=== PATIENT | female | born 1975 | race Caucasian/White ===

== ENCOUNTER 2016-12-05 01:41 | Observation (INO) | payer BC ==
[2016-12-05] MEDS ORDERED: Pepcid 20 MG VIAL IV ONE ×2 (01:47→02:08)
[2016-12-05] MEDS ORDERED: Sodium Chloride 0.9% 1000 ML 1,000 ML IV STA (01:47)
[2016-12-05] MEDS ORDERED: BABY ASPIRIN 81 MG CHEW PO ONE (01:53)
[2016-12-05] MEDS ORDERED: BENADRYL 50 MG/ML IV ONE (01:54)
[2016-12-05] MEDS ORDERED: Hydromorphone 1 mg/ml Ampule IV ONE (01:54)
--- NOTE | 2016-12-05 02:02 | ERPHSYRPT ---
- History of Present Illness Time Seen by Provider: 12/05/16 01:45 Historian: patient Patient Subjective Stated Complaint: PT STATES AT APPROXIMATELY 1145PM SHE WOKE FROM SLEEP WITH SEVERE PAIN IN THE MIDDLE OF HER CHEST THAT RADIATED UNDER HER RIBS AND AROUND TO HER BACK. "IT FEELS LIKE THERE IS A ROPE TIED AROUND ME." PT REPORTS NAUSEA AND DIARRHEA THIS EVENING WELL. Triage Nursing Assessment: PT IS AOX3, PUPILS PERRL, AMBULATORY TO COT WITHOUT ANY DIFFICULTIES, SKIN IS PWD, RESPS ARE EASY AND NON LABORED,REPORTS CHEST PAIN AND OVERALL DISCOMFORT TO CENTER OF CHEST. RADIAL PULSES STRONG AND EQUAL. Physician History: CC: chest pain Hx: 41 y/o patient of Dr Mora. She awoke around [place] with sharp central chest pressure radiating around to her back from both sides. She has no personal hx of heart disease but does have fam hx. LMP 3 weeks ago. Not short of breath. No cough. Pain some better now. Took prevacid at home. She has hx of prior indigestion. Pain was severe now moderate. No abd pain. Some recent diarrhea and chills. No N/V. Timing/Duration: today Quality: pressure, sharpness Location: central Chest Pain Radiation: back Severity of Pain-Max: severe Severity of Pain-Current: mild Aspirin Treatment Today: 81 mg x 2, provided by ED Allergies/Adverse Reactions: No Known Drug Allergies Allergy (Verified 12/05/16 01:57) Home Medications: No Reportable Medications [No Reported Medications] 12/05/16 [History] Hx Tetanus, Diphtheria Vaccination/Date Given: No Hx Influenza Vaccination/Date Given: No Hx Pneumococcal Vaccination/Date Given: No Immunizations Up to Date: Yes - Review of Systems Constitutional: Chills, No Fever Eyes: No Symptoms Ears, Nose, & Throat: No Symptoms Respiratory: No Cough, No Dyspnea Cardiac: Chest Pain, No Syncope Abdominal/Gastrointestinal: Diarrhea, No Abdominal Pain, No Nausea, No Vomiting Genitourinary Symptoms: No Dysuria Musculoskeletal: Back Pain Skin: No Rash Neurological: No Focal Weakness, No Headache, No Parasthesia All Other Systems: Reviewed and Negative - Past Medical History Pertinent Past Medical History: No - Past Surgical History Past Surgical History: Yes Female Surgical History: Section, Other Other Surgical History: BREAST REDUCTION, RSO - Social History Smoking Status: Never smoker Drug Use: none Patient Lives Alone: No - Female History Hx Last Menstrual Period: 11/25/16 - Nursing Vital Signs Temperature: 99.6 F Pulse Rate: 100 Respiratory Rate: 20 Pain Intensity: 3 - Physical Exam General Appearance: alert Eye Exam: PERRL/EOMI Ears, Nose, Throat Exam: normal ENT inspection, moist mucous membranes Neck Exam: normal inspection, non-tender, supple Respiratory Exam: normal breath sounds, lungs clear Cardiovascular Exam: regular rate/rhythm, No murmur Gastrointestinal/Abdomen Exam: soft, tenderness (RUQ somewhat with mild winston' s sign) Back Exam: normal inspection, normal range of motion Extremity Exam: normal inspection, normal range of motion Neurologic Exam: alert, oriented x 3, cooperative, sensation nml, No motor deficits Skin Exam: warm, dry, No rash SpO2 Interpretation: normal SpO2: 99 - Course Nursing assessment & vital signs reviewed: Yes EKG Interpreted by Me: RATE (98), Sinus Rhythm, NORMAL AXIS, NORMAL INTERVALS ( QTc 435), NORMAL QRS, NORMAL ST-T - Radiology Exams cxr-1 X-ray Interpretation: Reviewed by me (rotated, can not rule out widened mediastinum) cxr-2 X-ray Interpretation: Reviewed by me (negative, unchanged from 07-18) Ordered Tests: Active Orders 24 hr Category Date Time Status Costume Rental Clerk STAT Care 12/05/16 01:53 Active Clean Catch Urine Specimen STAT Care 12/05/16 01:47 Active EKG-ER Only STAT Care 12/05/16 01:47 Active IV Insertion STAT Care 12/05/16 01:47 Active NPO (ED) STAT Care 12/05/16 01:47 Active Pulse Oximetry (ED) STAT Care 12/05/16 01:53 Active CHEST 1 VIEW (PORTABLE) Stat Exams 12/05/16 01:53 Taken CHEST 2 VIEWS (PA AND LAT) Stat Exams 12/05/16 02:56 Taken CBC W DIFF Stat Lab 12/05/16 01:55 Completed CMP Stat Lab 12/05/16 01:55 Completed HCG QUALITATIVE,SERUM Stat Lab 12/05/16 01:55 Completed LIPASE Stat Lab 12/05/16 01:55 Completed Lactic Acid Urgent Lab 12/05/16 01:56 Completed TROPONIN Q3H Lab 12/05/16 01:55 Completed TROPONIN Q3H Lab 12/05/16 05:00 Ordered TROPONIN Q3H Lab 12/05/16 08:00 Ordered TROPONIN Q3H Lab 12/05/16 11:00 Ordered TROPONIN Q3H Lab 12/05/16 14:00 Ordered UA W/ MICROSCOPIC Stat Lab 12/05/16 02:10 Completed Medication Summary Discontinued Medications Generic Name Dose Route Start Last Admin Trade Name Homeroq PRN Reason Stop Dose Admin Aspirin 162 mg 12/05/16 01:53 Baby Aspirin 81 Mg Chew PO 12/05/16 01:54 STAT ONE Aspirin Confirm 12/05/16 02:08 Baby Aspirin 81 Mg Chew Administered 12/05/16 02:09 Dose 162 mg .ROUTE .STK-MED ONE Diphenhydramine HCl 25 mg 12/05/16 01:54 12/05/16 02:19 Benadryl 50 Mg/Ml IV 12/05/16 01:55 25 mg STAT ONE Administration Diphenhydramine HCl Confirm 12/05/16 02:08 Benadryl 50 Mg/Ml Administered 12/05/16 02:09 Dose 50 mg .ROUTE .STK-MED ONE Famotidine 20 mg 12/05/16 01:47 12/05/16 02:19 Pepcid 20 Mg Vial IV 12/05/16 01:48 20 mg STAT ONE Administration Famotidine Confirm 12/05/16 02:08 Pepcid 20 Mg Vial Administered 12/05/16 02:09 Dose 20 mg IV .STK-MED ONE Hydromorphone HCl 1 mg 12/05/16 01:54 12/05/16 02:20 Hydromorphone 1 Mg/Ml Ampule IV 12/05/16 01:55 1 mg STAT ONE Administration Hydromorphone HCl Confirm 12/05/16 02:09 Hydromorphone 1 Mg/Ml Ampule Administered 12/05/16 02:10 Dose 1 mg .ROUTE .STK-MED ONE Sodium Chloride 1,000 mls @ 999 mls/hr 12/05/16 01:47 12/05/16 02:19 Sodium Chloride 0.9% 1000 Ml IV 12/05/16 02:47 999 mls/hr .Q1H1M STA Administration Sodium Chloride Confirm 12/05/16 02:09 Sodium Chloride 0.9% 1000 Ml Administered 12/05/16 02:10 Dose 1,000 mls @ ud .ROUTE .STK-MED ONE Ondansetron HCl 4 mg 12/05/16 02:35 Zofran 4 Mg/2 Ml Vial IV 12/05/16 02:36 STAT ONE Ondansetron HCl Confirm 12/05/16 02:36 Zofran 4 Mg/2 Ml Vial Administered 12/05/16 02:37 Dose 4 mg .ROUTE .STK-MED ONE Lab/Rad Data: Laboratory Result Diagrams 12/05/16 01:55 12/05/16 01:55 Laboratory Results 12/05/16 12/05/16 12/05/16 Range/Units 02:10 01:56 01:55 WBC (4.0-10.5) K/mm3 RBC (4.1-5.4) M/mm3 Hgb (12.0-16.0) gm/dl Hct (35-47) % MCV (78-100) fl MCH (26-32) pg MCHC (32-36) g/dl RDW (11.5-14.0) % Plt Count (150-450) K/mm3 MPV (6-9.5) fl Gran % (36.0-66.0) % Lymphocytes % (24.0-44.0) % Monocytes % (0.0-12.0) % Eosinophils % (0.00-5.0) % Basophils % (0.0-0.4) % Basophils # (0-0.4) Sodium (136-145) mEq/L Potassium (3.5-5.1) mEq/L Chloride (98-107) mEq/L Carbon Dioxide (21-32) mEq/L Anion Gap (5-15) MEQ/L BUN (9-20) mg/dL Creatinine (0.55-1.30) mg/dl Estimated GFR ML/MIN Glucose (70-110) MG/DL Lactic Acid 1.2 (0.4-2.0) Calcium (8.5-10.1) mg/dL Total Bilirubin (0.2-1.0) mg/dL AST (15-37) U/L ALT (12-78) U/L Alkaline Phosphatase (46-116) U/L Troponin I < 0.017 (0.000-0.056) ng/ml Serum Total Protein (6.4-8.2) gm/dL Albumin (3.4-5.0) g/dL Lipase (73-393) U/L Serum , Qual (Negative) Ur Collection Type CLEAN CATCH Urine Color YELLOW (YELLOW) Urine Appearance SLIGHTLY CLOUDY (CLEAR) Urine pH 6.5 (5-6) Ur Specific Goff 1.025 (1.005-1.025) Urine Protein NEGATIVE (Negative) Urine Glucose (UA) NEGATIVE (NEGATIVE) mg/dL Urine Ketones NEGATIVE (NEGATIVE) Urine Nitrite NEGATIVE (NEGATIVE) Urine Bilirubin NEGATIVE (NEGATIVE) Urine Urobilinogen 0.2 (0-1) mg/dL Urine WBC (Auto) SMALL (NEGATIVE) Urine RBC (Auto) TRACE NON-HEM (0-5) Roger/ul Urine Microscopic RBC 0-2 (0-2) /HPF Urine Microscopic WBC 2-5 (0-5) /HPF Ur Epithelial Cells FEW (FEW) /HPF Urine Bacteria FEW (NEGATIVE) /HPF Specimen Received 12/05/16:0210 12/05/16 12/05/16 12/05/16 Range/Units 01:55 01:55 01:55 WBC 9.5 (4.0-10.5) K/mm3 RBC 4.72 (4.1-5.4) M/mm3 Hgb 12.4 (12.0-16.0) gm/dl Hct 37.2 (35-47) % MCV 78.8 (78-100) fl MCH 26.3 (26-32) pg MCHC 33.3 (32-36) g/dl RDW 15.0 H (11.5-14.0) % Plt Count 209 (150-450) K/mm3 MPV 10.0 H (6-9.5) fl Gran % 82.5 H (36.0-66.0) % Lymphocytes % 6.9 L (24.0-44.0) % Monocytes % 8.9 (0.0-12.0) % Eosinophils % 1.5 (0.00-5.0) % Basophils % 0.2 (0.0-0.4) % Basophils # 0.02 (0-0.4) Sodium 141 (136-145) mEq/L Potassium 4.1 (3.5-5.1) mEq/L Chloride 105 (98-107) mEq/L Carbon Dioxide 24.5 (21-32) mEq/L Anion Gap 15.8 H (5-15) MEQ/L BUN 17 (9-20) mg/dL Creatinine 0.66 (0.55-1.30) mg/dl Estimated GFR > 60 ML/MIN Glucose 121 H (70-110) MG/DL Lactic Acid (0.4-2.0) Calcium 9.2 (8.5-10.1) mg/dL Total Bilirubin 0.7 (0.2-1.0) mg/dL AST 128 H (15-37) U/L ALT 75 (12-78) U/L Alkaline Phosphatase 79 (46-116) U/L Troponin I (0.000-0.056) ng/ml Serum Total Protein 7.4 (6.4-8.2) gm/dL Albumin 4.2 (3.4-5.0) g/dL Lipase 120 (73-393) U/L Serum , Qual NEGATIVE (Negative) Ur Collection Type Urine Color (YELLOW) Urine Appearance (CLEAR) Urine pH (5-6) Ur Specific Goff (1.005-1.025) Urine Protein (Negative) Urine Glucose (UA) (NEGATIVE) mg/dL Urine Ketones (NEGATIVE) Urine Nitrite (NEGATIVE) Urine Bilirubin (NEGATIVE) Urine Urobilinogen (0-1) mg/dL Urine WBC (Auto) (NEGATIVE) Urine RBC (Auto) (0-5) Roger/ul Urine Microscopic RBC (0-2) /HPF Urine Microscopic WBC (0-5) /HPF Ur Epithelial Cells (FEW) /HPF Urine Bacteria (NEGATIVE) /HPF Specimen Received - Progress Progress Note: 12/05/16 03:15 Pain gone. Maybe some tenderness in RUQ on palpation. She has had quite a lot of nausea. She is very worried about her heart. Nothing to suggest TAD as she has normal pulses, normal mediastinum. Likely will jewel bearing turner to bililary. Called Dr Bang (oc) for tele obs for serial troponin and possibly GB sonogram. Counseled pt/family regarding: lab results, diagnosis, need for follow-up, rad results - Departure Time of Disposition: 03:16 Departure Disposition: Observation (Tele) Clinical Impression: Acute chest pain Condition: Fair Critical Care Time: No Referrals: JOSHUA MORA [Primary Care Provider] -
[2016-12-05 02:03] LABS: BASOPHIL % 0.2 % (0.0-0.4); Eosinophil % 1.5 % (0.00-5.0); Granulocytes % 82.5 % (36.0-66.0); Lymphocytes % 6.9 % (24.0-44.0); Mean Cell Volume 78.8 fl (78-100); Mean Corpuscular Hemoglobin 26.3 pg (26-32); Monocytes % 8.9 % (0.0-12.0); Platelet Count 209 K/mm3 (150-450); Red Blood Count 4.72 M/mm3 (4.1-5.4); White Blood Count 9.5 K/mm3 (4.0-10.5)
[2016-12-05] MEDS ORDERED: BABY ASPIRIN 81 MG CHEW ONE (02:08)
[2016-12-05] MEDS ORDERED: BENADRYL 50 MG/ML ONE (02:08)
[2016-12-05] MEDS ORDERED: Sodium Chloride 0.9% 1000 ML 2,000 ML ONE (02:09)
[2016-12-05] MEDS ORDERED: Hydromorphone 1 mg/ml Ampule ONE (02:09)
[2016-12-05 02:25] LABS: ALBUMIN 4.2 g/dL (3.4-5.0); ALKALINE PHOSPHATASE 79 U/L (46-116); ANION GAP 15.8 MEQ/L (5-15); BILIRUBIN,TOTAL 0.7 mg/dL (0.2-1.0); BLOOD UREA NITROGEN 17 mg/dL (9-20); CHLORIDE 105 mEq/L (98-107); Carbon Dioxide 24.5 mEq/L (21-32); Glucose 121 MG/DL (70-110); LIPASE 120 U/L (73-393); Potassium 4.1 mEq/L (3.5-5.1); SGOT/AST 128 U/L (15-37); SGPT/ALT 75 U/L (12-78); SODIUM 141 mEq/L (136-145); Total Protein 7.4 gm/dL (6.4-8.2)
[2016-12-05 02:30] LABS: Bacteria FEW /HPF (NEGATIVE); COMPLETE URINE MICROSCOPIC? YES; Collection Type CLEAN CATCH; Epithelial Cells FEW /HPF (FEW); Ph 6.5 (5-6)
[2016-12-05] MEDS ORDERED: Zofran 4 MG/2 ML VIAL IV ONE (02:35)
[2016-12-05] MEDS ORDERED: Zofran 4 MG/2 ML VIAL ONE (02:36)
[2016-12-05] MEDS ORDERED: Zofran 4 MG/2 ML VIAL IV PRN (03:53)
[2016-12-05] MEDS ORDERED: Sodium Chloride 0.9% 1000 ML 1,000 ML IV SCH (03:53)
[2016-12-05] MEDS ORDERED: DILAUDID 2 MG INJECTION IV PRN (03:53)
--- NOTE | 2016-12-05 08:59 | XRAY ---
Indication: Chest pain. Comparison: July 28, 2016. Portable chest rotated translating the heart and mediastinal structures. Lungs are clear today. Heart is not enlarged. Bony thorax intact. Impression: Nonacute chest.
--- NOTE | 2016-12-05 08:59 | XRAY ---
Indication: Chest pain. Comparison: Taken earlier in the day. PA/lateral chest remains clear. Heart and mediastinal structures stable and within normal limits. No new/acute findings. Impression: Stable nonacute chest.
[2016-12-05] MEDS ORDERED: Pepcid 20 MG VIAL IV SCH (10:00)
--- NOTE | 2016-12-05 11:36 | PCM.SSS ---
History of Present Illness - Chief Complaint Chief Complaint: chest pain History of Present Illness: is a 41 year old female who ate a cheeseburger last night and afterward had some loose stool followed by 7/10 waxing and waning epigastric pain, sharp, which radiated under both breasts to the back as pressure. Improved before going to ER, and resolved after being given meds in ER. Nausea , no vomiting. Denies palpitations or SOB. Troponins neg x 3 here. GB u/s done. Pt with some stomach upset after the u/s , notes she had abd tenderness with the scan. GM and aunt with hx cholecystectomy. - Review of Systems Abdominal/Gastrointestinal: Abdominal Pain, Nausea, Diarrhea All Other Systems: Reviewed and Negative Medications & Allergies Home Medications: Home Medication List No Reportable Medications [No Reported Medications] 12/05/16 [History Confirmed 12/05/16] Allergies/Adverse Reactions: Allergies Allergy/AdvReac Type Severity Reaction Status Date / Time No Known Drug Allergies Allergy Verified 12/05/16 01:57 - Past Medical History Past Medical History: No Neurological History: No Pertinent History ENT History: No Pertinent History Cardiac History: No Pertinent History Respiratory History: No Pertinent History Endocrine Medical History: No Pertinent History Musculoskelatal History: No Pertinent History GI Medical History: GERD History: No Pertinent History Pyscho-Social History: No Pertinent History Reproductive Disorders: No Pertinent History Comment: HTN hx during - Female History Hx Last Menstrual Period: 11/25/16 Are you now?: No - Past Surgical History Past Surgical History: Yes Neuro Surgical History: No Pertinent History Cardiac History: No Pertinent History Respiratory Surgery: No Pertinent History GI Surgical History: No Pertinent History Genitourinary Surgical Hx: No Pertinent History Female Surgical History: Section, Tubal Ligation, Other Other Surgical History: BREAST REDUCTION, RSO - Social History Smoking Status: Never smoker Exposure to second hand smoke: No Alcohol: None Drug Use: none - Physical Exam Vital Signs: Vital Signs - 24 hr Temp Pulse Pulse Resp BP Pulse Ox 12/05/16 07:23 98.6 F 90 20 130/70 97 12/05/16 04:28 98.4 F 83 21 129/69 94 L 12/05/16 03:23 92 H 18 140/89 97 12/05/16 03:17 99.6 F 100 H 20 99 12/05/16 01:58 99 12/05/16 01:55 100 H 12/05/16 01:42 99.6 F 100 H 20 141/98 99 General Appearance: no apparent distress Neurologic Exam: alert, oriented x 3, cooperative Eye Exam: eyes nml inspection Neck Exam: normal inspection, non-tender, No lymphadenopathy Respiratory Exam: normal breath sounds, lungs clear, No crackles/rales, No rhonchi, No wheezing Cardiovascular Exam: regular rate/rhythm, normal heart sounds, No murmur Gastrointestinal/Abdomen Exam: soft, normal bowel sounds, No tenderness, No distention, No mass, No guarding, No rebound Back Exam: normal inspection, No CVA tenderness Extremity Exam: No pedal edema, No swelling Skin Exam: normal color, warm, dry Results - Labs Lab/Micro Results: Lab Results-Last 24 Hours 12/05/16 12/05/16 Range/Units 05:20 08:03 Troponin I < 0.017 < 0.017 (0.000-0.056) ng/ml Assessment/Plan (1) Epigastric pain Current Visit: Yes Status: Acute Assessment & Plan: Highly suspicious for gallbladder disease. U/S pending. If negative would do HIDA scan outpatient; discussed with pt. Will try bland diet - discussed at length with pt. If she tolerates po can go home. Code(s): R10.13 - EPIGASTRIC PAIN (2) Chest pain Current Visit: Yes Status: Acute Qualifiers: Chest pain type: other chest pain Qualified Code(s): R07.89 - Other chest pain; R07.8 - Other chest pain Assessment & Plan: IA ruled out. Code(s): R07.9 - CHEST PAIN, UNSPECIFIED (3) Nausea Current Visit: Yes Status: Acute Assessment & Plan: I think may improve after she eats. Code(s): R11.0 - NAUSEA (4) Elevated liver enzymes Current Visit: Yes Status: Acute Assessment & Plan: check OP lab next week. Code(s): R74.8 - ABNORMAL LEVELS OF OTHER SERUM ENZYMES Hospital Summary - Hospital Course Hospital Course: Pt admitetd with epigastric pain, IA ruled out with troponins x 3. GB U/s with what sounds like + Coe's sign per pt. Await report. Pain is resolved, still some nausea present. She will try eating bland lunch, if tolerates po can d/c home. - Vitals & Intake/Output Vital Signs: Vital Signs Temperature 98.6 F 12/05/16 07:23 Pulse Rate 90 12/05/16 07:23 Respiratory Rate 20 12/05/16 07:23 Blood Pressure 130/70 12/05/16 07:23 O2 Sat by Pulse Oximetry 97 12/05/16 07:23 Intake & Output: Intake & Output 12/02/16 12/03/16 12/04/16 12/05/16 11:59 11:59 11:59 11:59 Intake Total 0 Balance 0 Weight 89.448 kg - Lab Result Diagrams: 12/05/16 01:55 12/05/16 01:55 Lab Results-Last 24 Hrs: Lab Results-Last 24 Hours 12/05/16 12/05/16 Range/Units 05:20 08:03 Troponin I < 0.017 < 0.017 (0.000-0.056) ng/ml - Discharge Disposition: Home, Self-Care Condition: Fair Prescriptions: No Action No Reportable Medications [No Reported Medications] Follow up with: JOSHUA ROMERO [NON-STAFF PHY W/O PRIVILEGES] -
[2016-12-05 12:17] VITALS: BP 138/81; PULSE 75; O2SAT 98
--- NOTE | 2016-12-05 21:05 | XRAY ---
Indication: Abdomen/chest pain. Nausea. Two-dimensional right upper quadrant abdominal sonogram performed. Comparison: None. Gallbladder normally distended without gallstones, wall thickening, or pericholecystic fluid. Common bile duct measures 3.0 mm. No intrahepatic biliary distention. Visualized portions of the liver, pancreas, and right kidney is sonographically unremarkable. Right kidney measures 10.8 cm in length. No ascites. Impression: Negative gallbladder sonogram. Comment: Preliminary report was given.
== END 2016-12-05 14:55 | disposition home or self-care (01) ==
LOC: ED 01:41 → MED SURG 03:33
PROVIDERS: ADMIT Family Medicine; ATTEND Family Medicine
DX: R10.13 Epigastric pain (principal); R07.9 Chest pain, unspecified; R74.8 Abnormal levels of other serum enzymes
CPT/HCPCS: 36000; 36415; 71010; 71020; 76705; 80053; 81000; 83605; 83690; 84484; 84703; 85025; 93005; 93041; 93268; 96360; 96374; 96375; 99285; G0378; J1170; J1200; J2405

== ENCOUNTER 2017-01-17 09:08 | Day surgery (SDC) | payer BC ==
--- NOTE | 2017-01-17 07:50 | HP ---
DATE OF SURGERY: 01/17/2017 HISTORY OF PRESENT ILLNESS: The patient is a 41 year-old for three or four weeks with epigastric pain radiating towards the back. She ended up in the emergency department. She has nausea, no vomiting. No jaundice. Diarrhea with anything she eats for quite some time. Ultrasound revealed stones. HIDA ejection fraction was 8% consistent with dyskinesia and chronic cholecystitis. PAST MEDICAL HISTORY: Denied any chronic illnesses. PAST SURGICAL HISTORY: section. She had ovarian cyst removed, ovary and fallopian tubes in the removed in the past MEDICATIONS: None on a regular basis. ALLERGIES: NKDA. FAMILY HISTORY: Hypertension, coronary artery disease, diabetes. SOCIAL HISTORY: No smoking. Occasion alcohol use. REVIEW OF SYSTEMS: Twelve systems reviewed. No chest pain or palpitations other systems negative or noncontributory as above and per preadmission questionnaire. PHYSICAL EXAMINATION: GENERAL: No acute distress. HEENT: Sclerae nonicteric. NECK: No JVD. CHEST: Clear to auscultation. CVS: Regular rate and rhythm. ABDOMEN: Soft. No peritoneal signs. Mild tenderness epigastrium right upper quadrant. EXTREMITIES: No edema. NEURO: Alert, moving extremities symmetrically. No gross motor deficits noted. IMPRESSION: Symptomatic biliary dyskinesia, probable chronic cholecystitis. I feel the patient will benefit from cholecystectomy. She was explained laparoscopic cholecystectomy possible open. She was shown the gallbladder pamphlet and risk sheet, explained the procedure in detail but not limited to bleeding or infection, small risk of trocar injury or hernia, small risk of bowel, bladder, or blood vessel injury, small risk of bile leak, bile duct injury, retained stone or sludge possibly requiring further procedure either open or ERCP, general risk of anesthesia, deep venous thrombosis, pulmonary embolism, pneumonia, perioperative risk of aches, pains, bloating, constipation and/or loose stools possibly even chronic in nature, possibility that this procedure may not improve her symptoms that she may need further work up and/or testing, endoscopy, other studies or procedures. She understands and agrees to the planned procedure, will proceed with laparoscopic cholecystectomy with possible open as an outpatient.
[~2017-01-17 09:08] MED LIST: BLOXIVERZ IV ONE; DILAUDID 2 MG INJECTION IV ONE; DIPRIVAN 200 MG/20 ML IV ONE; Decadron 4 MG INJ IV ONE; Lactated Ringers 1,000 ML IV ONE; Quelicin Fliptop 200 MG/10 ML IV ONE; ROBINUL IV ONE; SUBLIMAZE 100 MCG/2 ML IV ONE; Sensorcaine 0.25% 10 ML ONE; TORAdol 30 mg Injection IV ONE; Zemuron 100 MG/10 ML IV ONE; Zofran 4 MG/2 ML VIAL IV ONE
[2017-01-17] MEDS ORDERED: MEFOXIN 2 GM PREMIX** 50 ML IV ONE (09:21)
[2017-01-17] MEDS ORDERED: Pepcid 20 MG VIAL IV ONE ×2 (09:22→09:23)
[2017-01-17] MEDS ORDERED: Lactated Ringers 1,000 ML IV ONE (09:24)
[2017-01-17] MEDS ORDERED: Lactated Ringers 1,000 ML IV SCH (09:30)
[2017-01-17] MEDS ORDERED: Zofran 4 MG/2 ML VIAL ONE (11:49)
[2017-01-17] MEDS ORDERED: BENADRYL 50 MG/ML IV PRN (13:01)
[2017-01-17 14:07] VITALS: BP 127/84; PULSE 84; O2SAT 94
--- NOTE | 2017-01-17 15:39 | OP ---
SURGERY DATE/TIME: 01/17/2017 1015 PREOPERATIVE DIAGNOSIS: Symptomatic biliary dyskinesia, chronic cholecystitis. POSTOPERATIVE DIAGNOSIS: Symptomatic biliary dyskinesia, chronic cholecystitis. PROCEDURE: Laparoscopic cholecystectomy. SURGEON: Dr. Sylvester Ocampo. INFORMATION AND DATA ARCHITECT ANALYST: Christina Fu, Medical Student III. ANESTHESIA: General. ESTIMATED BLOOD LOSS: Minimal. INDICATIONS: As noted above. Risks and benefits explained in detail but not limited to and consent obtained. DESCRIPTION OF PROCEDURE AND FINDINGS: The patient was taken to the operating room. General anesthesia was induced. Abdomen prepped and draped in the usual sterile fashion. After official time out and no disagreement with planned procedure, a transverse incision made at supraumbilical area. Fascia grasped and pulled upward. Veress needle inserted and tested with saline. Pneumoperitoneum accomplished insufflating opening pressure of 0-15. An 11 mm bladeless port and camera were inserted without difficulty followed by two - 5 mm right upper quadrant ports and a 5 mm epigastric port. Gallbladder grasped retracted over the edge of the liver. Dissection carried from posterior, lateral to anterior fashion. Main cystic arterial branch carefully isolated directly on the gallbladder wall. It was clipped x3 and divided in usual fashion. The cystic duct and infundibular junction slowly and carefully skeletonized until a critical view was obtained both anteriorly and posteriorly. The cystic duct was then clipped x3 and divided in usual fashion. The gallbladder slowly and carefully dissected free from its dense almost concrete attachments to the liver bed staying directly on the gallbladder wall clipping additional oozing side branch off the cystic artery directly on the gallbladder wall as necessary. Just prior to releasing from final attachments to the anterior edge of the liver, there did appear to be a little small vein anterior edge of the liver that was also clipped. The gallbladder is freed and placed in a Pleatman sac and pulled out the umbilical 10/11 port site and passed off without difficulty. The port was replaced. Copious amount of irrigation accomplished lateral to the liver and subhepatic space irrigating until clear. The liver bed re-inspected. Clips noted to be in place in cystic duct and cystic artery stumps. There were no signs of any active bleeding or bile leakage. It was felt there was no benefit of drain placement at this point. Fascial defects 10/11 port site was closed with puncture closure device under direct vision with #1 Vicryl. The remainder of the 5 mm port sites did not need fascial closure at this time. Pneumoperitoneum decompressed. Port removed. The skin incision closed with 4-0 Vicryl. Steri-Strips and sterile dressing applied. 0.25% Marcaine local injected along the skin incision fascial defect. The patient tolerated the procedure well. There were no immediate complications. Findings discussed with the family out in the waiting area.
== END 2017-01-17 14:30 | disposition home or self-care (01) ==
LOC: SDC 09:08
PROVIDERS: ATTEND Surgery
PROC: 0FT44ZZ Resection of Gallbladder, Percutaneous Endoscopic Approach (ICD-10-PCS; principal; 2017-01-17)
DX: K81.1 Chronic cholecystitis (principal)
CPT/HCPCS: 00790; 36415; J0330; J0694; J1100; J1170; J1885; J2405; J2704; J2710; J3010

== ENCOUNTER 2021-07-27 08:29 | Day surgery (SDC) | payer BC ==
--- NOTE | 2021-07-27 08:43 | HP ---
DATE OF SURGERY: 07/27/2021 HISTORY OF PRESENT ILLNESS: The patient is a 45-year-old with couple weeks of esophageal burning, some reflux, some odynophagia, question of some dysphagia, some epigastric pain. PAST MEDICAL HISTORY: Hypertension. PAST SURGICAL HISTORY: Cholecystectomy. She had ovary removed on the right in the past. MEDICATIONS: Carvedilol, spironolactone, omeprazole, famotidine. She had some sucralfate that helped a little bit. ALLERGIES: NKDA. FAMILY HISTORY: Hypertension, heart disease. SOCIAL HISTORY: No smoking or alcohol abuse. REVIEW OF SYSTEMS: Fourteen systems reviewed. No chest pain or palpitations. Other systems negative or noncontributory as above and per preadmission questionnaire. PHYSICAL EXAMINATION: GENERAL: No acute distress. HEENT: Sclerae nonicteric. NECK: No JVD. CHEST: Equal excursion, nonlabored breathing. CVS: Regular rate and rhythm. ABDOMEN: Soft. No peritoneal signs. EXTREMITIES: No significant edema. NEURO: Alert, oriented, moving extremities symmetrically. PSYCH: Appropriate mood and affect. IMPRESSION: History of some epigastric pain, some reflux, odynophagia, question some dysphagia, feels like something in her upper throat at times off and on. I feel she would benefit from upper endoscopy possible biopsy, possible dilatation depending on operative findings. Risks and benefits explained in detail including but not limited to bleeding or infection, risk of bowel injury or perforation possibly requiring open procedure, risk of missed or nondiagnosis or incomplete exam possibly requiring barium swallow, other studies or procedures. General risk of anesthesia or sedation, possibility of inability to improve her symptoms. She may need further work up and/or testing or referral. She is understands and agrees to the planned procedure, will proceed with EGD possible biopsy possible dilatation as an outpatient.
[2021-07-27] MEDS ORDERED: Lactated Ringers 1,000 ML IV ONE (08:57)
[2021-07-27] MEDS ORDERED: Versed 2 MG/2 ML Injection IV ONE (09:19)
[2021-07-27] MEDS ORDERED: Lactated Ringers 1,000 ML IV SCH (09:30)
[2021-07-27] MEDS ORDERED: Xylocaine-Mpf 2% 5 Ml Vial ONE (10:41)
[2021-07-27] MEDS ORDERED: DIPRIVAN 200 MG/20 ML IV ONE (10:41)
[2021-07-27 11:27] VITALS: BP 139/92; PULSE 69; O2SAT 97
--- NOTE | 2021-07-28 07:46 | OP ---
SURGERY DATE/TIME: 07/27/2021 1030 PREOPERATIVE DIAGNOSIS: Epigastric pain, increased reflux, some odynophagia, occasional dysphagia. POSTOPERATIVE DIAGNOSIS: Some minimal to mild gastritis. PROCEDURES: 1) EGD with cold biopsy of small bowel for celiac sprue. 2) Cold biopsy of antrum to evaluate for Helicobacter pylori. 3) Cold biopsy distal esophagus. 4) Random cold biopsies mid esophagus to evaluate for eosinophilic esophagitis. SURGEON: Dr. Sylvester Ocampo. ANESTHESIA: MAC. ESTIMATED BLOOD LOSS: Minimal. INDICATIONS: As noted above. Risks and benefits explained in detail and not limited to and consent obtained. DESCRIPTION OF PROCEDURE AND FINDINGS: The patient is taken to the endoscopy room. MAC anesthesia introduced. After official time out and no disagreement with planned procedure, a bite block positioned. Video gastroscope easily passed through the esophagus through the patent pylorus to the junction of the third portion of the duodenum. First, second and third portion of the duodenum grossly unremarkable. There were no signs of any obvious ulcers in the duodenum. Cold biopsy taken to evaluate for celiac sprue. Good hemostasis noted. The scope was then pulled back up to the stomach. It did have some mild gastric erythema and possible some minimal to mild gastritis or gastropathy. Cold biopsy taken to evaluate for Helicobacter pylori. Good hemostasis noted. No signs of any ulcers. The scope is retroflexed. No signs of any significant hiatal hernia. No signs of any obvious ulcers or masses. Cold biopsy taken of the antrum to evaluate for Helicobacter pylori. The scope pulled back. Gastroesophageal junction about 39 cm. Z-line was fairly crisp. No signs of any significant erosions. Some random cold biopsies taken distal esophagus for further evaluation. Random cold biopsies taken up in the mid esophagus to evaluate for eosinophilic esophagitis. Good hemostasis is noted. There are no signs of any active bleeding. There did not appear to be any isolated narrowed segments that warranted dilatation on this operative setting. It was not felt that any esophageal dilatation needed at this point. The scope is withdrawn. Findings discussed with the family out in the waiting area. I will see her back in the office next week.
== END 2021-07-27 11:32 | disposition home or self-care (01) ==
LOC: SDC 08:29
PROVIDERS: ATTEND Surgery
DX: K29.70 Gastritis, unspecified, without bleeding (principal); R13.10 Dysphagia, unspecified
CPT/HCPCS: 88305; 88312; J2250; J2704

== ENCOUNTER 2024-07-23 18:16 | Emergency (ER) | payer BC ==
[2024-07-23 18:40] VITALS: BP 142/95; PULSE 70; RESP 19; TEMP 98; O2SAT 100
--- NOTE | 2024-07-23 18:48 | ERPHSYRPT ---
- History of Present Illness Source: patient Exam Limitations: no limitations Patient Subjective Stated Complaint: Laceration to finger on left hand. Patient cut her finger with a paring knife while peeling potatoes approx one hour ago. Triage Nursing Assessment: Patient ambulated back to ER with a papertowel wrapped around her finger. She is alert and oriented. Papertowel removed. "V" shaped laceration/Avulsion present. No active bleeding. Well approximated. Physician History: Very shallow laceration on right ring finger. Its about a centimeter total in length. It is lying down well. Bleeding is well-controlled. There is no peripheral neurovascular involvement. She has full function of the finger distally. Method of Injury: incised Modifying Factors: Improves With: nothing Associated Symptoms: none Allergies/Adverse Reactions: No Known Drug Allergies Allergy (Verified 12/05/16 01:57) Home Medications: Carvedilol 12.5 mg [Coreg 12.5 mg] 12.5 mg PO BID 07/17/21 [History] Famotidine 20 mg PO BID 07/17/21 [History] Omeprazole 40 mg PO DAILY 07/17/21 [History] Spironolactone 25 mg PO DAILY 07/17/21 [History] Sucralfate 1 gm [Carafate 1 GM] 1 g PO TID 07/17/21 [History] Hx Tetanus, Diphtheria Vaccination/Date Given: No Hx Influenza Vaccination/Date Given: No Hx Pneumococcal Vaccination/Date Given: No Travel Risk - International Travel Have you traveled outside of the country in past 3 weeks: No - Emerging Infectious Disease Are you exhibiting symptoms associated with any current EIDs: No - Review of Systems Constitutional: No Symptoms Neurological: No Symptoms Psychological: No Symptoms - Past Medical History Pertinent Past Medical History: Yes Neurological History: No Pertinent History ENT History: No Pertinent History Cardiac History: Hypertension Respiratory History: No Pertinent History Endocrine Medical History: No Pertinent History Musculoskeletal History: No Pertinent History GI Medical History: GERD, Gallbladder Disease History: No Pertinent History Psycho-Social History: No Pertinent History Female Reproductive Disorders: No Pertinent History Other Medical History: HTN hx during - Past Surgical History Past Surgical History: Yes Neuro Surgical History: No Pertinent History Cardiac: No Pertinent History Respiratory: No Pertinent History Gastrointestinal: Cholecystectomy Genitourinary: No Pertinent History Female Surgical History: Section, Tubal Ligation, Other Other Surgical History: BREAST REDUCTION, RSO, Right ovary removed - Female History Hx Now: No - Social History Smoking Status: Never smoker Exposure to second hand smoke: No Drug Use: none Patient Lives Alone: No - Social Determinants of Health Will the patient participate in the screening: Yes Do you worry about a steady place to live?: No Do you have any problems with any of the following?: No known problems In the past 12 months,have you had to go without utilities?: No Transportation Issues: No Has anyone in your support network made you feel unsafe?: No Have you or anyone in your house had to go without enough: No - Nursing Vital Signs Nursing Vital Signs: Initial Vital Signs Temperature 98 F 07/23/24 18:25 Pulse Rate 70 07/23/24 18:25 Respiratory Rate 19 07/23/24 18:25 Blood Pressure 142/95 07/23/24 18:25 O2 Sat by Pulse Oximetry 100 07/23/24 18:25 Pain Scale Pain Intensity 4 - Physical Exam Hand Exam: laceration (1 cm laceration is shallow and flap. Peripheral neurovascular is intact distally injury.) SpO2: 100 - Course Nursing assessment & vital signs reviewed: Yes - Progress Progress Note: Patient was stable throughout stay. We irrigated the wound and explored it and cleaned it thoroughly. We put a nonstick dressing on there and wrapped it with Coban so she cannot move it. I went to have her leave that on for 3 days. A splint was also applied. 07/23/24 18:45 Medical Desision Making - Risk of complications Minimal Risk: Minimal risk of morbidity - Departure Departure Disposition: Home Clinical Impression: Laceration of right ring finger Condition: Stable Critical Care Time: No Referrals: DIETER GALINDO NP [Primary Care Provider] - Follow up/PCP as directed Additional Instructions: Leave the dressing on for 3 to full days, 72 hours. Do not flex the finger. Return if symptoms worsen.
[2024-07-23] MEDS ORDERED: Adacel Vial IM ONE (18:50)
[2024-07-23] MEDS ORDERED: BACIGUENT PACKET ONE (18:50)
[2024-07-23] MEDS: Adacel Vial IM ONE (18:52)
[2024-07-23] MEDS: BACIGUENT PACKET TP ONE (18:53)
== END 2024-07-23 19:09 | disposition home or self-care (01) ==
LOC: ED 18:16
DX: S61.214A Laceration without foreign body of right ring finger without damage to nail, initial encounter (principal); W26.0XXA Contact with knife, initial encounter; Y93.G1 Activity, food preparation and clean up; I10 Essential (primary) hypertension; Z79.899 Other long term (current) drug therapy; Z23 Encounter for immunization
CPT/HCPCS: 90471; 90715; 99283; A9270-GY